=== PATIENT | male | born 1950 | race Two or more races ===

== ENCOUNTER 2024-05-16 10:21 | Inpatient (IN) | payer OTHER, MEDICARE ==
[~2024-05-16] VITALS: Ht 180.3 cm; Wt 83.0 kg
[2024-05-16] MEDS ORDERED: TAMS0.4C94 PO (10:29)
[2024-05-16] MEDS ORDERED: CHL25 PO (10:29)
[2024-05-16] MEDS ORDERED: METO25 PO (10:29)
[2024-05-16] MEDS ORDERED: METF-1211 PO (10:29)
[2024-05-16] MEDS ORDERED: ATOR20TA PO (10:29)
[2024-05-16] MEDS ORDERED: EMPA25TA3 PO (10:29)
[2024-05-16 11:58] LABS: BASOPHILS % (AUTO) 0.8 % (0.0-2.0); EOSINOPHILS % (AUTO) 1.2 % (1.0-6.0); HEMOGLOBIN 14.9 g/dL (13.5-17.5); LYMPHOCYTES # (AUTO) 1.1 K/uL (1.0-4.8); LYMPHOCYTES % (AUTO) 13.2 % (22.0-44.0); MEAN CORPUSCULAR HEMOGLOBIN 26.7 pg (26.0-34.0); MEAN CORPUSCULAR HGB CONC 32.5 G/dL (31.0-37.0); MEAN CORPUSCULAR VOLUME 82 fL (80-100); MONOCYTES # (AUTO) 0.6 K/uL (0.1-1.0); MONOCYTES % (AUTO) 7.2 % (2.0-9.0); NEUTROPHILS # (AUTO) 6.2 K/uL (1.8-7.7); NEUTROPHILS % (AUTO) 77.6 % (40.0-70.0); PLATELET COUNT (AUTO) 185 K/uL (150-450); RED BLOOD CELL COUNT(AUTO) 5.59 MIL/uL (4.50-5.90); RED CELL DISTRIBUTION WIDTH 15.9 % (11.5-14.5)
[2024-05-16 12:09] LABS: PROTHROMBIN TIME 11.5 SEC (9.4-11.6)
[2024-05-16 12:12] LABS: ANION GAP 7 mmol/L (8-16); CALCIUM, TOTAL 8.6 mg/dL (8.8-10.5); CARBON DIOXIDE 24 mmol/L (22-29); CHLORIDE 104 mmol/L (98-107); CREATININE 1.13 mg/dL (0.60-1.30); GLOMERULAR FILTR. RATE CALC > 60 mL/min (>60); GLUCOSE,RANDOM 279 mg/dL (70-110); SODIUM SERUM 135 mmol/L (136-145); UREA NITROGEN, BLOOD 17 mg/dL (7-18)
[2024-05-16 12:36] LABS: ALANINE AMINOTRANSFERASE 96 U/L (12-78); ALBUMIN 3.2 g/dL (3.4-5.0); ALKALINE PHOSPHATASE 45 U/L (46-116); ASPARTATE AMINOTRANSFERASE 68 U/L (15-37); BILIRUBIN,TOTAL 0.8 mg/dL (0.1-1.0); CREATINE KINASE, TOTAL ONLY 368 U/L (39-308)
[2024-05-16 12:43] LABS: TROPONIN I-HIGH SENSITIVITY 57 ng/L (<76)
[2024-05-16 12:52] LABS: B-TYPE NATRIURETIC PEPTIDE 742 pg/mL (0-100)
[2024-05-16 13:42] LABS: APPEARANCE,URINE CLEAR (CLEAR); BILIRUBIN,URINE NEGATIVE (NEGATIVE); COLOR,URINE YELLOW (YELLOW); GLUCOSE, URINE (UA) >=1000 mg/dL (NEGATIVE); KETONES,URINE TRACE mg/dL (NEGATIVE); LEUKOCYTE ESTERASE ,URINE NEGATIVE (NEGATIVE); NITRATE,URINE NEGATIVE (NEGATIVE); OCCULT BLOOD,URINE NEGATIVE (NEGATIVE); PROTEIN,URINE 30-70 mg/dL (NEGATIVE); UROBILINOGEN,URINE <=1.0 mg/dL (<=1.0)
[2024-05-16 13:51] LABS: BACTERIA,URINE None Seen /HPF (None Seen); RBC,URINE None Seen /HPF (0-2); SQUAMOUS EPITHELIAL CELL,UR Rare /LPF (None Seen); WBC,URINE None Seen /HPF (0-5)
[2024-05-16] MEDS: FUROSEMIDE 20 MG/2 ML VIAL IVP ONE (14:26)
[2024-05-16] MEDS: NITROGLYCERIN 2% (1 GM=INCH) OINTMENT PACKET TP ONE (14:26)
[2024-05-16] MEDS ORDERED: ONDANSETRON HCL 4 MG/2 ML VIAL IVP PRN (15:15)
[2024-05-16] MEDS ORDERED: MORPHINE SULFATE 2 MG/ML SYRINGE IVP PRN (15:15)
[2024-05-16] MEDS ORDERED: BISACODYL 10 MG RECTAL RECTAL SUPPOSITORY PR PRN (15:15)
[2024-05-16] MEDS ORDERED: ACETAMINOPHEN 325 MG TABLET PO PRN (15:15)
[2024-05-16] MEDS ORDERED: ZOLPIDEM TARTRATE 5 MG TABLET PO PRN (15:15)
[2024-05-16] MEDS ORDERED: HYDROCODONE/ACETAMINOPHEN 5-325 MG TABLET PO PRN (15:15)
[2024-05-16] MEDS ORDERED: MAGNESIUM HYDROXIDE SUSPENSION 30 ML UDCUP PO PRN (15:15)
[2024-05-16] MEDS: HEPARIN SODIUM,PORCINE 5,000 UNITS/ML VIAL SQ SCH (16:00)
[2024-05-16 16:39] VITALS: BP 133/109; PULSE 118; RESP 18; TEMP 98; O2SAT 98
[2024-05-16] MEDS: MetFORMIN HCL 500 MG TABLET PO SCH (17:36)
[2024-05-16 20:08] VITALS: BP 123/92; PULSE 108; RESP 18; TEMP 98.2; O2SAT 98
[2024-05-16] MEDS: DOCUSATE SODIUM 100 MG CAPSULE PO SCH (20:15)
[2024-05-16] MEDS: METOPROLOL TARTRATE 25 MG TABLET PO SCH (20:15)
[2024-05-16] MEDS: FUROSEMIDE 20 MG/2 ML VIAL IVP SCH (20:15)
[2024-05-17 00:14] VITALS: BP 120/79; PULSE 91; RESP 19; TEMP 98.6; O2SAT 97
[2024-05-17 04:14] VITALS: BP 127/91; PULSE 100; RESP 19; TEMP 98.1; O2SAT 96
[2024-05-17 07:11] VITALS: BP 124/96; PULSE 98; RESP 18; TEMP 97.9; O2SAT 100
[2024-05-17 07:36] LABS: ANION GAP 10 mmol/L (8-16); CALCIUM, TOTAL 8.4 mg/dL (8.8-10.5); CARBON DIOXIDE 23 mmol/L (22-29); CHLORIDE 102 mmol/L (98-107); CREATININE 1.12 mg/dL (0.60-1.30); GLOMERULAR FILTR. RATE CALC > 60 mL/min (>60); GLUCOSE,RANDOM 198 mg/dL (70-110); POTASSIUM 3.6 mmol/L (3.5-5.1); SODIUM SERUM 135 mmol/L (136-145); UREA NITROGEN, BLOOD 14 mg/dL (7-18)
[2024-05-17 07:37] LABS: BASOPHILS % (AUTO) 0.5 % (0.0-2.0); EOSINOPHILS % (AUTO) 1.8 % (1.0-6.0); HEMATOCRIT 43.7 % (41-53); HEMOGLOBIN 14.5 g/dL (13.5-17.5); LYMPHOCYTES # (AUTO) 1.1 K/uL (1.0-4.8); LYMPHOCYTES % (AUTO) 13.7 % (22.0-44.0); MEAN CORPUSCULAR HEMOGLOBIN 27.1 pg (26.0-34.0); MEAN CORPUSCULAR HGB CONC 33.1 G/dL (31.0-37.0); MEAN CORPUSCULAR VOLUME 82 fL (80-100); MONOCYTES # (AUTO) 0.7 K/uL (0.1-1.0); NEUTROPHILS # (AUTO) 6.2 K/uL (1.8-7.7); PLATELET COUNT (AUTO) 174 K/uL (150-450); RED BLOOD CELL COUNT(AUTO) 5.34 MIL/uL (4.50-5.90); RED CELL DISTRIBUTION WIDTH 15.6 % (11.5-14.5); WHITE BLOOD COUNT (AUTO) 8.3 K/uL (4.5-11.0)
[2024-05-17] MEDS: PANTOPRAZOLE SODIUM 40 MG DR TABLET PO SCH (08:25)
[2024-05-17] MEDS: CHLORTHALIDONE 25 MG TABLET PO SCH (08:26)
[2024-05-17] MEDS: EMPAGLIFLOZIN 25 MG TABLET PO SCH (08:26)
[2024-05-17] MEDS: TAMSULOSIN HCL 0.4 MG CAPSULE PO SCH (08:27)
[2024-05-17] MEDS: ATORVASTATIN CALCIUM 20 MG TABLET PO SCH (08:27)
[2024-05-17 11:32] VITALS: BP 120/84; PULSE 98; RESP 18; TEMP 97.6; O2SAT 100
[2024-05-17] MEDS: LOSARTAN POTASSIUM 25 MG TABLET PO SCH (15:50)
[2024-05-17 15:51] VITALS: BP 106/73; PULSE 103; RESP 19; TEMP 98.4; O2SAT 100
[2024-05-17 20:25] VITALS: BP 118/72; PULSE 99; RESP 18; TEMP 98.2; O2SAT 96
[2024-05-18 00:12] VITALS: BP 132/86; PULSE 95; RESP 18; TEMP 98.3; O2SAT 97
[2024-05-18 03:42] VITALS: BP 114/81; PULSE 94; RESP 18; TEMP 98; O2SAT 100
[2024-05-18 06:48] LABS: BASOPHILS % (AUTO) 0.6 % (0.0-2.0); HEMATOCRIT 44.3 % (41-53); HEMOGLOBIN 14.8 g/dL (13.5-17.5); LYMPHOCYTES # (AUTO) 1.6 K/uL (1.0-4.8); LYMPHOCYTES % (AUTO) 20.1 % (22.0-44.0); MEAN CORPUSCULAR HEMOGLOBIN 27.2 pg (26.0-34.0); MEAN CORPUSCULAR HGB CONC 33.4 G/dL (31.0-37.0); MEAN CORPUSCULAR VOLUME 82 fL (80-100); MONOCYTES # (AUTO) 0.8 K/uL (0.1-1.0); MONOCYTES % (AUTO) 9.5 % (2.0-9.0); NEUTROPHILS # (AUTO) 5.3 K/uL (1.8-7.7); NEUTROPHILS % (AUTO) 66.8 % (40.0-70.0); PLATELET COUNT (AUTO) 189 K/uL (150-450); RED BLOOD CELL COUNT(AUTO) 5.44 MIL/uL (4.50-5.90); RED CELL DISTRIBUTION WIDTH 15.6 % (11.5-14.5); WHITE BLOOD COUNT (AUTO) 7.9 K/uL (4.5-11.0)
[2024-05-18 06:59] LABS: CALCIUM, TOTAL 8.9 mg/dL (8.8-10.5); CREATININE 1.3 mg/dL (0.60-1.30); POTASSIUM 3.5 mmol/L (3.5-5.1)
[2024-05-18 08:16] VITALS: BP 114/82; PULSE 91; RESP 17; TEMP 98.3; O2SAT 96
[2024-05-18] MEDS: SPIRONOLACTONE 25 MG TABLET PO SCH (09:15)
[2024-05-18 15:19] VITALS: BP 102/54; PULSE 98; RESP 18; TEMP 97.9; O2SAT 100
[2024-05-19] MEDS ORDERED: METOPROLOL SUCCINATE 25 MG ER TABLET PO SCH (09:00)
[2024-05-19] MEDS ORDERED: FUROSEMIDE 40 MG TABLET PO SCH (09:00)
== END 2024-05-18 20:55 | disposition left against medical advice (07) | DRG 291 ==
LOC: EMS 10:21 → UNDOADMIN 15:04 → EDH 15:04 → 5S 16:15
PROVIDERS: ADMIT Internal Medicine; ATTEND Internal Medicine
DX: I11.0 Hypertensive heart disease with heart failure (principal); I50.43 Acute on chronic combined systolic (congestive) and diastolic (congestive) heart failure; E11.9 Type 2 diabetes mellitus without complications; I42.8 Other cardiomyopathies; Z53.29 Procedure and treatment not carried out because of patient's decision for other reasons; N40.0 Benign prostatic hyperplasia without lower urinary tract symptoms; E78.00 Pure hypercholesterolemia, unspecified; I49.3 Ventricular premature depolarization; Z79.899 Other long term (current) drug therapy; Z91.148 Patient's other noncompliance with medication regimen for other reason
CPT/HCPCS: 71045; 80048; 80053; 81001; 82550; 83880; 84484; 85025; 85610; 85730; 93005; 93306; 99285; J1644; J1940; 36415-L1; 36415-TC